=== PATIENT | female | born 1975 | race Caucasian/White ===

== ENCOUNTER → 2019-09-26 13:19 | Outpatient (CLI) | payer OTHER, SELFPAY ==
--- NOTE | ~2019-09-26 | US_ITS ---
US soft tissue UE LT 09/26/2019 13:45 Indication: Localized swelling. Mass with lump. Procedure: High-resolution ultrasound of the left upper arm in the area of palpable concern Comparison: No prior studies for comparison. Findings: There is an oval circumscribed slightly hyperechoic heterogeneous mass in the area of palpa ble concern. No significant internal vascularity or posterior features. This mass measures 2.3 x 1.9 x 0.6 cm. Impression: 1: Oval slightly hyperechoic mass in the left upper arm in the area of palpable concern measuring 2.3 x 1.9 x 0.6 cm. This is likely benign, possibly lipoma. Recommend short-term follow-up ultrasound in 3 months to assess stability. If there is a history of malignancy, consider further evaluation with percutaneous biopsy. Reviewed, dictated and finalized at location A. [facility] [employer] Impression: 1: Oval slightly hyperechoic mass in the left upper arm in the area of palpable concern measuring 2.3 x 1.9 x 0.6 cm. This is likely benign, possibly lipoma. Recommend short-term follow-up ultrasound in 3 months to assess stability. If t here is a history of malignancy, consider further evaluation with percutaneous biopsy.
== END ==
PROVIDERS: PCP Family Medicine; Visit Provider Physician Assistant Medical
DX: R22.9 Localized swelling, mass and lump, unspecified (principal)
CPT/HCPCS: 76882

== ENCOUNTER 2020-11-20 03:05 | Day surgery (SDC) | payer OTHER, SELFPAY ==
[2020-11-12 13:02] VITALS: BMI 27.4
[2020-11-20] VITALS (7 sets, daily range): BP systolic 121–137; BP diastolic 72–90; PULSE 68–84; RESP 12–20; TEMP 36.4–36.7; O2SAT 98–100
[2020-11-20] MEDS: LACTATED RINGERS 1,000 ML 30 ML IV CONT (11:45)
--- NOTE | 2020-11-20 12:20 | PM.IMHP ---
H&P: HPI History of Present Illness Date/Time: 11/20/20 12:20 45 y/o desiring permanent contraception. Chief Complaint: Here to have my tubes tied Review of Systems Review of Systems: All systems reviewed & are unremarkable except as noted in HPI and below PMFSH Family History Family History Father Hypertension Family history of coronary artery disease Social History Social History Smoking status: Never smoker Alcohol intake: never Spiritual care concerns: No Meds Home Medications and Allergies Home Medications Medication Instructions Recorded Confirmed Type levalbuterol tartrate 45 2 inhalation INHALATION Q6H 07/12/19 11/12/20 History mcg/actuation aerosol inhaler Allergies Allergy/AdvReac Type Severity Reaction Status Date / Time No Known Allergies Allergy Verified 11/20/20 11:44 Vital Signs Vital Signs - 24 hr 11/20/20 11:37 Temperature 36.7 C Pulse Rate 81 Respiratory Rate 20 Blood Pressure 121/72 Pulse Oximetry 99 Exam Const: Orientation/consciousness: patient oriented x3 Other: Well-developed, well-nourished female in no acute distress. Neck: Thyroid: thyroid normal Lymphatic: no lymphadenopathy noted (in neck, axilla or inguinal nodes) Resp: Effort & Inspection: normal respiratory effort Auscultation: clear to auscultation bilaterally Cardio: Rate: regular rate Rhythm: regular rhythm Heart sounds: S1 normal heart sound present and S2 normal heart sound present GI: Other: ABD: Soft, nontender, nondistended. No guarding or rebound tenderness. No hepatosplenomegaly. : General: Yes no CVA tenderness Other: External genitalia: normal female hair distribution, without lesion. Urethral meatus: no lesion, non prolapsed. Bladder: no mass, nontender Vagina: well-estrogenized, without lesion or discharge. No cystocele or rectocele. Cervix: no lesion or discharge. Uterus: small, anteverted, freely mobile, nontender Adnexa: no mass or tenderness. Anus/perineum: no lesions, nontender Back/Spine/Pelvis: Back: no CVA tenderness Skin: General skin exam: normal color and no rashes or lesions noted Neuro: General: patient oriented x3 Extrem: Other: Extremities: nontender with no edema Psych: Mental Status: mental status grossly normal Affect: normal affect Assessment and Plan Assessment and plan (1) Unwanted fertility: Code(s): Z30.09 - Encounter for other general counseling and advice on contraception Status: Acute Assessment and Plan: A: Desired sterility. P: She understands there are temporary methods of contraception available to her. She understands that there are nonsurgical options as well as surgical options. She understands that tubal ligation will render her permanently sterile. She understands that there is a failure rate associated with tubal ligation, as well as an inherent ectopic gestation risk. Furthermore, she understands risks of surgery to include risks of anesthesia, risks of pain, infection, bleeding, blood products, thromboembolic phenomena and damage to adjacent structures such as bowel, bladder, ureters, blood vessels and nerves. She understands all these risks and elects to proceed with laparoscopic bilateral tubal ligation. She has received the ACOG pamphlet on surgical sterilization.
--- NOTE | 2020-11-20 12:28 | WPDHPUPDATE1 ---
History and Physical Update Update Date/Time: 11/20/20 12:28 History and Physical has been reviewed, including an updated exam of the patient. There are NO changes in the patient's condition. Risks, benefits, and alternatives have been discussed and questions answered. Patient agrees to proceed with procedure.
--- NOTE | 2020-11-20 12:52 | WPDANESEPPF ---
Anes - Initial Pre Proc Eval Procedure: Operation Date: 11/20/20 13:30 Proposed Procedures p Laparoscopic Tubal Sterilization With Fallopian Rings - Edwin Adair MD Date/Time: 11/20/20 12:52 Surgeon: Edwin Adair MD Pre Op Diagnosis: Desires Sterilization Patient Data Age: 45 Gender: F Height: 1.65 m Weight: 76.8 kg Last Vital Signs Temp 36.7 C 11/20/20 11:37 Pulse 81 11/20/20 11:37 Resp 20 11/20/20 11:37 BP 121/72 11/20/20 11:37 Pulse Ox 99 11/20/20 11:37 Allergies Allergy/AdvReac Type Severity Reaction Status Date / Time No Known Allergies Allergy Verified 11/20/20 11:44 Home Medications Medication Instructions Recorded Confirmed Type levalbuterol tartrate 45 2 inhalation INHALATION Q6H 07/12/19 11/12/20 History mcg/actuation aerosol inhaler Patient hx anesthesia problems: none Family hx anesthesia problems: none PMFSH Past Medical History Medical History (Updated 11/20/20 @ 12:52 by Geoff Willard DO) Asthma exercise induced History of skin cancer Family History Family History Father Hypertension Family history of coronary artery disease Social History Social History Smoking status: Never smoker Alcohol intake: never Spiritual care concerns: No Anes - Eval Final PreProcedure Day of Procedure 11/20/20 12:52 Patient weight: overweight Heart: regular rate and rhythm Lungs: clear to auscultation and normal air movement Airway: Mallampati scale class III Neurological: alert and oriented Last oral intake: >/= 8 hours ASA classification: III Emergent: no Anesthetic plan: proceed Anesthesia type and monitoring: general ETT and standard monitoring Informed Consent: The patient's anesthetic plan and its attendant risks and benefits were discussed with the patient/family/POA. Questions were solicited and answers provided to the satisfaction of the patient/family/POA.
--- NOTE | 2020-11-20 14:43 | SUR.OPER ---
GYRUS FALOPE RING BAND APPLICATION KIT EXP 2025-05-13, lOT [id number]. BILATERAL APPLICATION.
[2020-11-20] MEDS: KETOROLAC 30 MG/ML VIAL (*BKC) 15 MG IV PUSH (14:46)
--- NOTE | 2020-11-20 15:01 | P.OP_ITS ---
Procedure Note - Detailed Date of procedure: 11/20/20 Pre-op diagnosis: Desires Sterilization Desired sterility Post-op diagnosis: same Procedure performed: Laparoscopic bilateral tubal ligation Description of procedure: The patient was taken to the operating room where general endotracheal anesthesia was administered. She was prepared and draped in the usual sterile fashion in dorsal lithotomy position. The bladder was drained with a red rubber catheter. A sterile speculum was placed into the vagina. The anterior lip of the cervix was grasped with a single-tooth tenaculum. The acorn uterine manipulator was placed. The speculum was withdrawn. Gloves were changed and attention was turned the abdomen. An infraumbilical skin incision was made with a scalpel. The abdomen was tented and a 5mm bladeless trocar was advanced under direct laparoscopic visualization. Pneumoperitoneum was administered using carbon dioxide gas. A survey of the pelvis and abdomen revealed the findings noted above. A second skin incision was made in the midline above the symphysis pubis and an 8mm bladeless trocar was advanced under direct laparoscopic visualization. The fallopian tube on the right side was followed out to the fimbriated end for identification. It was then grasped in the midportion with the Falope ring applicator. The Falope ring was applied. However, presumably due to the increased diameter of the Fallopian tube, the ring did not apply properly. The ring was retrieved and discarded. The device was reloaded and the left tube was similarly identified. The Falope ring was applied, but did not appear fully satisfactory either. The Kleppinger forceps were used to fulgurate 3-4 cm segments of both tubes in their midportions. A total of 4mL of 1% lidocaine was infiltrated into the serosa of the proximal tubes for postoperative anesthesia. During manipulation of the adnexa, the left ovarian cyst ruptured and serous fluid was noted. Hemostasis was excellent. The ports were withdrawn. The gas was allowed to escape. The skin incisions were reapproximated using interrupted subcuticular sutures of 4 0 Vicryl. Dermaflex was applied externally. The vaginal instrumentation was wit hdrawn and hemostasis was excellent here as well. Sponge, lap, needle and instrument counts were correct. The patient was awakened and taken to recovery room in stable condition. I was present and scrubbed through the entire procedure. Implants: Falope ring x 1 Anesthesia: GETA and local (1% lidocaine) Surgeon: Edwin Adair MD Estimated blood loss (mL): 5 Drains: No Packing: No Pathology: none sent Complications: None Condition: stable Findings: Uterus with a small, subserosal fibroid anteriorly. Small left ovarian cyst. Bilateral Fallopian tubes mildly dilated, otherwise unremarkable. Anterior and posterior cul de sac, bilateral round ligaments, and bilateral uterosacral ligaments all unremarkable.
[2020-11-20] MEDS: fentaNYL CITRATE INJ (*CRX) 100 MCG/2 ML VIAL 25 MCG IV PUSH ×4 (15:30→16:06)
[2020-11-20] MEDS: ONDANSETRON INJ 4 MG/2 ML VIAL IV PUSH (16:37)
[2020-11-20] MEDS: oxyCODONE HCL (*CRX) 5 MG TAB IR PO (16:48)
== END 2020-11-20 17:20 | disposition home or self-care (01) ==
PROVIDERS: PCP Family Medicine; Visit Provider Obstetrics & Gynecology
PROC: (CPT 58671; principal; 2020-11-20 13:30)
DX: Z30.2 Encounter for sterilization (principal); D25.2 Subserosal leiomyoma of uterus; N83.202 Unspecified ovarian cyst, left side; J45.909 Unspecified asthma, uncomplicated
CPT/HCPCS: 58670; A4264; A9270; J0330; J1100; J1885; J2250; J2405; J2704; J3010; J7120

== ENCOUNTER 2022-09-17 10:16 | Outpatient (CLI) | payer OTHER, SELFPAY ==
--- NOTE | ~2022-09-17 | MM_ITS ---
EXAMINATION: MM screening chiara BI w sukh HISTORY: Screening mammogram TECHNIQUE: Craniocaudal and mediolateral oblique 3-D tomosynthesis images were obtained and synthetic 2-D images were generated. CAD analysis was submitted and interpreted. COMPARISON: 03/10/2017, 09/11/2015 BREAST PARENCHYMAL COMPOSITION: The breasts are heterogeneously dense, which may obscure small masses . FINDINGS: No suspicious mass, calcification, or architectural distortion are identified in either ammon ast to suggest malignancy. There has been no suspicious interval change. IMPRESSION: 1. No mammographic evidence of malignancy. 2. Recommend routine screening mammography in one year. BI-RADS Category 1: Negative Reviewed, dictated and finalized at location A. E MACHINIST
== END 2022-09-17 10:17 | disposition home or self-care (01) ==
PROVIDERS: PCP Family Medicine; Visit Provider Obstetrics & Gynecology
DX: Z12.31 Encounter for screening mammogram for malignant neoplasm of breast (principal)
CPT/HCPCS: 77063; 77067

== ENCOUNTER 2023-05-11 00:55 | Day surgery (SDC) | payer OTHER, SELFPAY ==
[2023-04-27 11:03] VITALS: BMI 24.0
--- NOTE | 2023-05-10 09:37 | WPDANESEPPF ---
Anes - Initial Pre Proc Eval Procedure: Operation Date: 05/11/23 11:15 Proposed Procedures p Screening Colonoscopy - Yasir Peterson MD Date/Time: 05/10/23 09:37 Surgeon: Yasir Peterson MD Pre Op Diagnosis: neoplasm screening Patient Data Age: 48 Gender: F Height: 1.65 m Weight: 65.5 kg Allergies Allergy/AdvReac Type Severity Reaction Status Date / Time No Known Allergies Allergy Verified 05/26/23 13:56 Home Medications Medication Instructions Recorded Confirmed Type testosterone 100 mg implant pellet 100 mg subcut ONCE 02/13/21 05/26/23 History arginine (L-arginine) 500 mg 500 mg PO DAILY 04/27/23 05/26/23 History capsule biotin 10,000 mcg capsule 10,000 mcg PO DAILY 04/27/23 05/26/23 History metformin 500 mg tablet,extended 500 mg PO TID 04/27/23 05/26/23 History release 24 hr progesterone micronized 100 mg 100 mg PO QAM 04/27/23 05/26/23 History capsule semaglutide 2 mg/dose (8 mg/3 mL) 2 mg subcut WEEKLY 04/27/23 05/26/23 History subcutaneous pen injector (Ozempic) thyroid (pork) 120 mg tablet (BRICK WASHER 120 mg PO DAILY 04/27/23 05/26/23 History Thyroid) thyroid (pork) 30 mg tablet (BRICK WASHER 30 mg PO DAILY 04/27/23 05/26/23 History Thyroid) albuterol sulfate 90 mcg/actuation 1 inh inhalation Q4H PRN shortness 05/26/23 Rx aerosol inhaler of breath or wheezing #8.5 grams azithromycin 250 mg tablet See Rx Instructions PO .COMPLEX #6 05/26/23 05/26/23 Rx (Zithromax) tabs sulfacetamide sodium 10 % eye drops 1 drp ophthalmic (eye) Q4H #15 mL 05/26/23 05/26/23 Rx Patient hx anesthesia problems: none Family hx anesthesia problems: none Results Review: All pre-operative results and documents have been reviewed as part of the pre-operative evaluation. [facility] Past Medical History Medical History (Updated 05/26/23 @ 15:50 by Mariana Michelle, JOÃO) Asthma exercise induced High cholesterol History of skin cancer Hypothyroidism Surgical History Surgical History History of tubal ligation Torn meniscus Family History Family History Father Hypertension Family history of coronary artery disease Grandparent Cerebrovascular accident Social History Social History Smoking status: Never smoker Alcohol intake: current Alcohol use details: 2x monthly Substance use: unknown Substance use type: does not use Living arrangements: with family 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 Gender identity (if verbalized by the patient): Female Spiritual care concerns: No Anes - Eval Final PreProcedure Day of Procedure 05/10/23 09:37 Patient weight: normal Heart: regular rate and rhythm Lungs: clear to auscultation and normal air movement Airway: Mallampati scale class II Neurological: alert and oriented Last oral intake: >/= 8 hours ASA classification: II Emergent: no Anesthetic plan: proceed Anesthesia type and monitoring: general GIVS and standard monitoring Results Review: All pre-operative results and documents have been reviewed as part of the pre-operative evaluation. Informed Consent: The patient's anesthetic plan and its attendant risks and benefits were discussed with the patient/family/POA. Questions were solicited and answers provided to the satisfaction of the patient/family/POA.
[2023-05-11 09:55] VITALS: BP 135/76; PULSE 96; RESP 18; TEMP 35.8; O2SAT 99; BMI 22.8
[2023-05-11] MEDS: LACTATED RINGERS 1,000 ML 150 ML IV CONT (10:26)
--- NOTE | 2023-05-11 10:38 | PM.HPGS ---
History of Present Illness History of Present Illness Consent: Risks, benefits, and alternatives have been discussed and questions answered. Patient agrees to proceed with procedure. Chief complaint: neoplasm screening Narrative: Teodoro Brice is a 48 year old female Presents for screening colonoscopy. Patient's current weight appetite and bowel movements are normal. Patient denies abdominal pain. She has had no bleeding. Family history noncontributory. Review of Systems Review of Systems: Review of systems noncontributory. [facility] Past Medical History Medical History (Updated 05/11/23 @ 10:39 by Yasir Peterson MD) Asthma exercise induced High cholesterol History of skin cancer Hypothyroidism Surgical History Surgical History (Updated 05/10/23 @ 09:38 by Geoff Willard DO) History of tubal ligation Torn meniscus Family History Family History Father Hypertension Family history of coronary artery disease Grandparent Cerebrovascular accident Social History Social History Smoking status: Never smoker Alcohol intake: current Alcohol use details: 2x monthly Substance use: unknown Substance use type: does not use Living arrangements: with family 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 Gender identity (if verbalized by the patient): Female Spiritual care concerns: No Meds Home Medications and Allergies Home Medications Medication Instructions Recorded Confirmed Type testosterone 100 mg implant pellet 100 mg subcut ONCE 02/13/21 05/11/23 History arginine (L-arginine) 500 mg 500 mg PO DAILY 04/27/23 05/11/23 History capsule biotin 10,000 mcg capsule 10,000 mcg PO DAILY 04/27/23 05/11/23 History metformin 500 mg tablet,extended 500 mg PO TID 04/27/23 05/11/23 History release 24 hr progesterone micronized 100 mg 100 mg PO QAM 04/27/23 05/11/23 History capsule semaglutide 2 mg/dose (8 mg/3 mL) 2 mg subcut WEEKLY 04/27/23 05/11/23 History subcutaneous pen injector (Ozempic) thyroid (pork) 120 mg tablet (RECONCILIATION ACCOUNTANT 120 mg PO DAILY 04/27/23 05/11/23 History Thyroid) thyroid (pork) 30 mg tablet (RECONCILIATION ACCOUNTANT 30 mg PO DAILY 04/27/23 05/11/23 History Thyroid) Allergies Allergy/AdvReac Type Severity Reaction Status Date / Time No Known Allergies Allergy Verified 05/11/23 10:02 Vital Signs Vital Signs - 24 hr 05/11/23 09:55 Temperature 96.5 F L Pulse Rate 96 Respiratory Rate 18 Blood Pressure 135/76 Pulse Oximetry 99 Oxygen Delivery Room Air Exam Narrative: Physical exam reveals patient to be alert. Vital signs stable. HEENT exam is unremarkable. Patient is anicteric. Lungs are clear to auscultation and percussion. Heart is without murmur or extra sounds. Abdomen bowel sounds present soft nontender with no organomegaly. Digital external rectal exam normal. Assessment and Plan Assessment and plan (1) Encounter for screening colonoscopy: Code(s): Z12.11 - Encounter for screening for malignant neoplasm of colon Status: Acute Assessment and Plan: Patient presents for screening colonoscopy. She appears to be at average risk for colon polyps. Further recommendations may be given after endoscopy.
[2023-05-11] MEDS: SIMETHICONE ORAL SUSPENSION 20 MG/0.3 ML 30 ML BOTTLE 0.6 ML IRRIGATION (11:50)
[2023-05-11 12:03] VITALS: BP 102/65; PULSE 85; RESP 17; O2SAT 100
[2023-05-11 12:13] VITALS: BP 108/72; PULSE 80; RESP 16; O2SAT 100
[2023-05-11 12:23] VITALS: BP 111/74; PULSE 76; RESP 15; O2SAT 100
== END 2023-05-11 12:31 | disposition home or self-care (01) ==
PROVIDERS: PCP Family Medicine; Visit Provider Internal Medicine Gastroenterology
PROC: 0DJD8ZZ Inspection of Lower Intestinal Tract, Via Natural or Artificial Opening Endoscopic (ICD-10-PCS; CPT 45378; principal; 2023-05-11 11:15)
DX: Z12.11 Encounter for screening for malignant neoplasm of colon (principal); K64.8 Other hemorrhoids; E03.9 Hypothyroidism, unspecified; Z79.84 Long term (current) use of oral hypoglycemic drugs; Z79.85 Long-term (current) use of injectable non-insulin antidiabetic drugs; Z79.890 Hormone replacement therapy
CPT/HCPCS: 45378; J2704; J7120

== ENCOUNTER 2023-09-01 14:02 | Outpatient (CLI) | payer OTHER, SELFPAY ==
--- NOTE | ~2023-09-01 | CT_ITS ---
EXAMINATION: CT abdomen pelvis wo con DATE: 09/01/2023 14:29 INDICATION: Localized mass, swelling, lump, trunk/back TECHNIQUE: Computed tomography (CT) of the abdomen and pelvis was performed without intravenous contr ast. Automated exposure control and iterative reconstruction technique were employed. Exam dose: 312 .08 mGy-cm total exam DLP. COMPARISON: None. FINDINGS: The lung bases are clear. Normal heart size. No pericardial or pleural effusion. The gallbladder is contracted. No bile duct or pancreatic duct dilatation. The liver, spleen, pancreas, and adrenal glands and kidneys appear unremarkable on this limited nonco ntrast examination. No urinary tract calculus or hydroureteronephrosis. The urinary bladder, uterus a nd adnexal areas are unremarkable. Normal caliber of the abdominal aorta. No intraperitoneal or retroperitoneal or pelvic mass lesion or adenopathy or ascites. Normal appendix. No bowel obstruction, bowel wall thickening, pneumatosis or intraperitoneal free air . There are are some air-fluid levels in the distal small bowel and right colon which may be due to m ild enterocolitis. Small fat-containing umbilical hernia. No soft tissue mass of the trunk or back is readily evident . Severe degenerative disease at L4-5 and L5-S1. Probable bone island of L1 and L3 vertebral bodies. IMPRESSION: No significant trunk or back soft tissue mass is identified. A lipoma might not be obvio us by CT examination. Reviewed, dictated and finalized at Location [facility]. Reviewed, dictated and finalized at location B. POLISHER IMPRESSION: No significant trunk or back soft tissue mass is identified. A lip vera might not be obvious by CT examination.
== END 2023-09-01 14:03 | disposition home or self-care (01) ==
LOC: ANHIMG 14:06
PROVIDERS: PCP Family Medicine; Visit Provider Family Medicine
DX: R22.2 Localized swelling, mass and lump, trunk (principal); M51.36 Other intervertebral disc degeneration, lumbar region; M51.37 Other intervertebral disc degeneration, lumbosacral region
CPT/HCPCS: 74176

== ENCOUNTER 2023-10-28 15:22 | Outpatient (CLI) | payer OTHER, SELFPAY ==
--- NOTE | ~2023-10-28 | MM_ITS ---
EXAMINATION: MM screening chiara BI w sukh HISTORY: Screening mammogram TECHNIQUE: Craniocaudal and mediolateral oblique 3-D tomosynthesis images were obtained and synthetic 2-D images were generated. CAD analysis was submitted and interpreted. COMPARISON: 09/17/2022, 03/10/2017 BREAST PARENCHYMAL COMPOSITION:Dense: The breasts are heterogeneously dense, which may obscure small masses. FINDINGS: No suspicious mass, calcification, or architectural distortion are identified in either ammon ast to suggest malignancy. There has been no suspicious interval change. IMPRESSION: No mammographic evidence of malignancy. Recommend routine screening mammography in one year. BI-RADS Category 1: Negative Reviewed, dictated and finalized at location . WORKER
== END 2023-10-28 15:23 | disposition home or self-care (01) ==
PROVIDERS: PCP Family Medicine; Visit Provider Obstetrics & Gynecology
DX: Z12.31 Encounter for screening mammogram for malignant neoplasm of breast (principal)
CPT/HCPCS: 77063; 77067

== ENCOUNTER 2024-03-11 11:49 | Outpatient (CLI) | payer OTHER, SELFPAY ==
--- NOTE | ~2024-03-11 | XR_ITS ---
Left wrist Technique: PA and lateral views were obtained. Clinical History: Pain Findings: No acute fracture or dislocation is seen. Osseous alignment is anatomic. Joint spaces are p reserved. Soft tissues are unremarkable. Impression: Unremarkable left wrist radiographs. Reviewed, dictated and finalized at location M. Impression: Unremarkable left wrist radiographs.
--- NOTE | ~2024-03-11 | XR_ITS ---
Right wrist Technique: PA and lateral views were obtained. Clinical History: Pain Findings: No acute fracture or dislocation is seen. Osseous alignment is anatomic. Joint spaces are p reserved. Soft tissues are unremarkable. Impression: Unremarkable right wrist radiographs. Reviewed, dictated and finalized at location M. Impression: Unremarkable right wrist radiographs.
== END 2024-03-11 11:50 ==
PROVIDERS: PCP Family Medicine; Visit Provider Nurse Practitioner Family
DX: M25.531 Pain in right wrist (principal); M25.532 Pain in left wrist
CPT/HCPCS: 73100

== ENCOUNTER 2024-10-30 07:37 | Outpatient (CLI) | payer OTHER, SELFPAY | END 2024-10-30 07:38 | disposition home or self-care (01) | LOC: ANHIMG 07:40 | PROVIDERS: PCP Family Medicine; Visit Provider Obstetrics & Gynecology | DX: Z12.31 Encounter for screening mammogram for malignant neoplasm of breast (principal) | CPT/HCPCS: 77063; 77067 ==